=== PATIENT | female | born 1960 | race Caucasian/White ===

== ENCOUNTER 2018-11-03 09:20 | Day surgery (SDC) | payer BC ==
[2018-11-03] VITALS (9 sets, daily range): BP systolic 101–117; BP diastolic 56–74
[~2018-11-03] VITALS: Ht 170.2 cm; Wt 68.9 kg
--- NOTE | 2018-11-03 08:02 | Pre-Procedure Note/Attestation ---
Pre-Procedure Note/Attestation Complete Prior to Procedure Planned Procedure: right Attestation I attest that I discussed the nature of the procedure; its benefits; risks and complications; and alternatives (and the risks and benefits of such alternatives ), prior to the procedure, with the patient (or the patient's legal event sales representative). I attest that, if there was a reasonable possibility of needing a blood transfusion, the patient (or the patient's legal event sales representative) was given the [facility] standardized written summary, pursuant to the [place] Blood Safety Act ([place] Health and Safety Code # 1645, as amended). I attest that I re-evaluated the patient just prior to the surgery and that there has been no change in the patient's H&P, except as documented below: Raymon Steven MD Nov 03, 2018 08:02
[2018-11-03] MEDS ORDERED: Vigamox Opth Soln 3ml ONE (10:14)
[2018-11-03] MEDS ORDERED: Cyclopentolate 1% Opth Sol 2ml ONE (10:14)
[2018-11-03] MEDS ORDERED: Tobradex Opth Susp 2.5ml ONE (10:14)
[2018-11-03] MEDS ORDERED: Tropicamide 1% Opth 15ml Soln ONE (10:14)
[2018-11-03] MEDS ORDERED: Phenylephrine 10% Opth Soln 5ml ONE (10:14)
[2018-11-03] MEDS ORDERED: Akten 3.5% 1ml Btl ONE (10:14)
[2018-11-03] MEDS: Cyclopentolate 1% Opth Sol 2ml RIGHT EYE SCH ×3 (10:19→10:37)
[2018-11-03] MEDS: Tobradex Opth Susp 2.5ml RIGHT EYE SCH ×3 (10:19→10:37)
[2018-11-03] MEDS: Tropicamide 1% Opth 15ml Soln RIGHT EYE SCH ×3 (10:19→10:37)
[2018-11-03] MEDS: Phenylephrine 10% Opth Soln 5ml RIGHT EYE SCH ×3 (10:19→10:37)
[2018-11-03] MEDS: Vigamox Opth Soln 3ml RIGHT EYE SCH ×3 (10:20→10:37)
[2018-11-03] MEDS: Akten 3.5% 1ml Btl RIGHT EYE SCH ×3 (10:29→10:39)
[2018-11-03] MEDS ORDERED: VITAMIN D1000 UNI1 ORAL (10:35)
[2018-11-03] MEDS ORDERED: LOESTRIN1 EAC1 PO (10:35)
[2018-11-03] MEDS ORDERED: TURMERIC 450-51 EAC1 PO (10:35)
[2018-11-03] MEDS ORDERED: COD LIVER OIL1 EAC1 PO (10:35)
[2018-11-03] MEDS ORDERED: MAGNESIUM30 M1 PO (10:35)
[2018-11-03] MEDS ORDERED: ACIDOPHILUS1 EAC6 PO (10:35)
[2018-11-03] MEDS ORDERED: VITAMIN B12 PO (10:35)
[2018-11-03] MEDS ORDERED: CINNAMON500 MG PO (10:36)
[2018-11-03] MEDS ORDERED: fentaNYL 100 mcg/2 mL IV ONE (11:30)
[2018-11-03] MEDS ORDERED: NS Irrig 1000ml ONE (11:30)
[2018-11-03] MEDS ORDERED: Sterile Water Irrig 1000ml IRRIG ONE (11:30)
[2018-11-03] MEDS ORDERED: Propofol 200mg/20ml IV ONE (11:30)
[2018-11-03] MEDS ORDERED: LR 1000ml ONE (11:30)
[2018-11-03] MEDS ORDERED: Midazolam 2mg/2ml Inj ONE (11:33)
[2018-11-03] MEDS ORDERED: LR 1000ml 1,000 ML IVLG SCH (11:41)
--- NOTE | 2018-11-03 11:41 | Anethesia Preoperative Eval ---
Anesthesia Pre-op PMH/ROS General Date of Evaluation: Nov 03, 2018 Time of Evaluation: 11:38 Anesthesiologist: Lala ASA Score: ASA 2 Mallampati Score Class I : Soft palate, uvula, fauces, pillars visible Class II: Soft palate, uvula, fauces visible Class III: Soft palate, base of uvula visible Class IV: Only hard plate visible Mallampati Classification: Class II Surgeon: Maurizio Diagnosis: R eye cataract Surgical Procedure: R eye cataract extractio Anesthesia History: none Family History: no anesthesia problems Allergies: Coded Allergies: CODEINE (Verified Allergy, Severe, vomiting, itching , 11/03/18) OPIOIDS - MORPHINE ANALOGUES (Verified Allergy, Severe, vomiting, itching , 11/03/18) PENICILLINS (Verified Allergy, Unknown, 11/03/18) Medications: see eMAR Patient NPO?: Yes Past Medical History Cardiovascular: Denies: HTN, CAD, VA, valve dz, arrhythmia, other Pulmonary: Denies: asthma, COPD, [place], other Gastrointestinal/Genitourinary: Reports: GERD; Denies: CRI, ESRD, other Neurologic/Psychiatric: Denies: dementia, CVA, depression/anxiety, TIA, other Endocrine: Reports: hypothyroidism; Denies: DM, steroids, other HEENT: Reports: cataract (L), cataract (R); Denies: glaucoma, [place] (L), [place] (R), other Hematology/Immune: Reports: anemia - mild Musculoskeletal/Integumentary: Denies: OA, RA, DJD, DDD, edema, other PMH Narrative: as above PSxH Narrative: see H&P Anesthesia Pre-op Phys. Exam Physician Exam Last Vital Signs Date Time Temp Pulse Resp B/P (MAP) Pulse Ox O2 Delivery O2 Flow Rate FiO2 11/03/18 10:31 Room Air 11/03/18 10:20 98.0 60 18 117/74 99 Constitutional: NAD Neurologic: CN 2-12 intact Cardiovascular: no M/R/G Respiratory: CTA Gastrointestinal: S/NT/ND Airway Exam Mallampati Score: Class II MO: full ROM: full Teeth: intact Dentures: no upper, no lower Anesthesia Pre-op A/P Labs see chart Studies Pre-op Studies: EKG - NSR Risk Assessment & Plan Assessment: ASA 2 Plan: Saul Lowry MD Nov 03, 2018 11:41
[2018-11-03] MEDS ORDERED: fentaNYL 100 mcg/2 mL IV PRN (11:45)
[2018-11-03] MEDS ORDERED: Tobradex Opth Oint 3.5gm ONE (12:22)
[2018-11-03] MEDS ORDERED: Lidocaine 1% MPF 10mg/ml 5ml ONE (12:28)
[2018-11-03] MEDS ORDERED: EPINEPHrine 1mg/1ml Amp ONE (12:28)
[2018-11-03] MEDS ORDERED: Pred Forte 1% Opth Susp 1ml ONE (12:28)
[2018-11-03] MEDS ORDERED: BSS 15ml BTL ONE (12:29)
[2018-11-03] MEDS ORDERED: Tetracaine 0.5% Opth 4ml Soln ONE (12:29)
[2018-11-03] MEDS ORDERED: Timolol 0.5% Op Soln 2.5ml ONE (12:29)
[2018-11-03] MEDS ORDERED: Sodium Hyaluronate 10 mg/ml 0.85ml ONE (12:29)
[2018-11-03] MEDS ORDERED: Povidone-Iodine 5% opth solution ONE (12:29)
[2018-11-03] MEDS ORDERED: BSS 500ml btl ONE (12:29)
--- NOTE | 2018-11-03 13:33 | Immediate Post-Op Evaluation ---
Immediate Post-Op Evalulation Immediate Post-Op Evalulation Procedure: R eye cataract extraction with IOL Date of Evaluation: Nov 03, 2018 Time of Evaluation: 13:32 IV Fluids: 500 Blood Products: none Estimated Blood Loss: none Urinary Output: none Blood Pressure Systolic: 108 Blood Pressure Diastolic: 69 Pulse Rate: 62 Respiratory Rate: 20 O2 Sat by Pulse Oximetry: 99 Temperature (Fahrenheit): 97.6 Pain Score (1-10): 2 Nausea: No Vomiting: No Complications none Patient Status: awake, patent, none Hydration Status: adequate Saul Reeves MD Nov 03, 2018 13:33
--- NOTE | 2018-11-03 13:34 | Discharge Instructions ---
Discharge Instructions Discharge Instructions Follow Up Orders Wear shield at all times except to place eye drops Continue preop eye drops Followup tomorrow in Dr Steven's office and bring all eye medications For Congestive Heart Failure Reminder Report to your physician any weight gain of 5 pounds or more in one week. Raymon Steven MD Nov 03, 2018 13:34
--- NOTE | 2018-11-03 13:37 | Brief Operative Note ---
Immediate Post Operative Note Operative Note Pre-op Diagnosis: Combined cataract, OD Procedure: Phaco PC IOL OD Post-op Diagnosis: same as pre-op Surgeon: aMlena Steven MD MS Nonprofit Manager: none Anesthesiologist: Dr Reeves Anesthesia: local, MAC Specimen: none Complications: none Fluids: see chart Implant(s) used?: Yes - brown [id number] 20.0 Raymon Steven MD Nov 03, 2018 13:37
[2018-11-03] MEDS ORDERED: Lidocaine 4% Amp ONE (13:42)
--- NOTE | 2018-11-03 14:21 | 48 Hour Post Anesthesia Eval ---
Post Anesthesia Evaluation Procedure: R eye cataract extraction with IOL Date of Evaluation: Nov 03, 2018 Time of Evaluation: 14:20 Blood Pressure Systolic: 104 0: 56 Pulse Rate: 72 Respiratory Rate: 20 Temperature (Fahrenheit): 97.8 O2 Sat by Pulse Oximetry: 98 Airway: patent Nausea: No Vomiting: No Pain Intensity: 2 Hydration Status: adequate Cardiopulmonary Status: stable Mental Status/LOC: patient returned to baseline Follow-up Care/Observations: n/a Post-Anesthesia Complications: none Follow-up care needed: ready to discharge Saul Reeves MD Nov 03, 2018 14:21
--- NOTE | 2018-11-04 00:45 | Operative Note - Dictated ---
DATE OF OPERATION: 11/03/2018 SURGEON: Raymon Steven M.D. COMPLIANCE OFFICER SURGEON: None. ANESTHESIOLOGIST: Saul Reeves M.D. ANESTHESIA: Local/standby/monitored anesthesia care. PREOPERATIVE DIAGNOSIS: Cataract, combined, right eye. POSTOPERATIVE DIAGNOSIS: Cataract, combined, right eye. PROCEDURE: 1. Phacoemulsification of cataract, right eye. 2. Placement of posterior chamber intraocular lens, right eye (model Ramírez , power 20.0). SPECIMENS: None. COMPLICATIONS: None. INDICATIONS FOR SURGERY: The patient has had painless progressive decrease in visual acuity in the right eye secondary to cataract. The patient understands the risks of surgery including infection, bleeding, need for further surgery, loss of vision, no improvement in vision, loss of the eye, loss of life, glaucoma, retinal detachment, understands these risks and elects to proceed with surgery. FINDINGS: The patient had a +2 nuclear sclerotic cataract, which was mainly posteriorly, but also a +1 to 2 posterior subcapsular cataract. OPERATIVE NOTE: After informed consent was obtained, the patient was brought into the operating room, placed in supine position. Cardiac and respiratory monitors were attached. Time-out was performed and all criteria were met and everyone in the room agreed. The right eye was then draped and prepped in sterile manner for ocular surgery. A lid speculum was placed in the eye. A 1% lidocaine preservative-free was injected at the 9 o'clock limbus. A conjunctiva peritomy from approximately 8:30 to 9:30 was made and dissected posteriorly. Hemostasis was maintained with bipolar cautery. A 2.6 mm limbal incision was made centered at approximately 9 o'clock and dissected anteriorly. Paracentesis was made at approximately 11:30 and Shugarcaine was injected into the anterior chamber followed by Healon. The anterior chamber was then entered using a 2.6 mm keratome through the limbal incision. An anterior capsulorrhexis was then performed. Hydrodissection and hydrodelineation of the lens was then performed. The lens was then phacoemulsified using divide and conquer four-quadrant technique. Residual cortical material was then aspirated. Healon was injected into the anterior chamber and capsular bag. The lens was taken from its package and placed into the cartridge and the tip of the cartridge was placed through the limbal incision. The lens was injected into the capsular bag and centered nicely with a [place] hook. Healon was aspirated from the anterior chamber and capsular bag. One 10-0 nylon interrupted suture was then placed through the limbal incision. The knot was rotated and buried. The conjunctiva was then closed with forceps cautery. The lid speculum and drapes were removed from the eye and drops of Pred Forte, TobraDex, and ciprofloxacin were applied to the eye followed by TobraDex ointment and then a shield. The patient tolerated the procedure well and left the operating room awake, alert, and in stable condition. NOTE: After the drapes were removed from the eye, I told the patient everything went fine without any problems and she stated that she was in pain during the entire procedure, but I told her that at one point she was sleeping during the procedure and she stated that she had pain during the whole procedure and I told her she should have stated something, but she did not. She was very quiet during the procedure and was not moving. During the procedure also, Dr. Reeves was giving sedation and monitoring her care. Raymon Steven M.D. DR: Hugo JOB#: [id number] CC:
== END 2018-11-03 14:30 | disposition home or self-care (01) ==
LOC: SUR 09:20
DX: H25.11 Age-related nuclear cataract, right eye (principal); H25.041 Posterior subcapsular polar age-related cataract, right eye; Z88.6 Allergy status to analgesic agent; Z88.0 Allergy status to penicillin; E03.9 Hypothyroidism, unspecified; K21.9 Gastro-esophageal reflux disease without esophagitis
CPT/HCPCS: 66984; J0171; J2250; J2704; J3010; V2632; 94003; 94150